=== PATIENT | male | born 1990 | race Caucasian/White ===

== ENCOUNTER 2016-09-19 00:21 | Emergency (ER) | payer SELFPAY ==
[~2016-09-19] VITALS: Ht 177.8 cm; Wt 127.0 kg
[2016-09-19 00:22] VITALS: BP 190/115; PULSE 115; RESP 20; TEMP 97.6; O2SAT 96
[2016-09-19 01:27] LABS: BACTERIA, URINE MOD /hpf; BLOOD, URINE MOD (NEG); COMMENT (UR) CULTURE INDICATED; CULTURE IF INDICATED CULTURE INDICATED; GLUCOSE,URINE 1000 mg/dL (NEG); KETONE, URINE NEG (NEG); MUCUS URINE FEW /lpf (OCC); NITRITE,URINE NEG (NEG); SQUAMOUS EPITHELIAL CELL URINE 4 /hpf (0-5)
[2016-09-19 01:29] LABS: URINE COLOR RED (YELLW/STRAW)
[2016-09-19] MEDS ORDERED: NOVORP2 SQ (01:48)
[2016-09-19 02:00] VITALS: BP 170/90; PULSE 100; RESP 20; O2SAT 96
[2016-09-19] MEDS ORDERED: SODIUM CHLOR 0.9% 1000 ML INJ 1,000 ML IV ONE (02:37)
[2016-09-19] MEDS ORDERED: SODIUM CHLORIDE 0.9% FLUSH 5 ML FLUSH IVF PRN (02:45)
[2016-09-19 02:59] LABS: AUTOMATED NEUTROPHIL # 12.6 TH/MM3 (1.8-7.7); BASOPHIL # 0.1 TH/MM3 (0-0.2); BASOPHIL % 0.5 % (0.0-2.0); EOSINOPHIL # 0.3 TH/MM3 (0-0.4); EOSINOPHIL % 1.5 % (0.0-4.0); HEMATOCRIT 48.4 % (39.0-51.0); LYMPH % 22.4 % (9.0-44.0); LYMPHOCYTE # 4.1 TH/MM3 (1.0-4.8); MEAN CORPUSCULAR HEMOGLOBIN 29.4 PG (27.0-34.0); MEAN CORPUSCULAR HGB CONC 34.5 % (32.0-36.0); MONO % 7.2 % (0.0-8.0); NEUT % 68.4 % (16.0-70.0); PLATELET COUNT 223 TH/MM3 (150-450); RED BLOOD COUNT 5.69 MIL/MM3 (4.50-5.90); RED CELL DISTRIBUTION WIDTH 13.9 % (11.6-17.2); WHITE BLOOD COUNT 18.4 TH/MM3 (4.0-11.0)
[2016-09-19 03:01] LABS: HEMO FLAGS AUTO DIFF
[2016-09-19 03:15] LABS: ALT (GPT) 40 U/L (12-78); ANION GAP 9 MEQ/L (5-15); AST (GOT) 14 U/L (15-37); BICARBONATE 24.2 MEQ/L (21.0-32.0); BLOOD UREA NITROGEN 6 MG/DL (7-18); CHLORIDE 104 MEQ/L (98-107); GLOMERULAR FILTRATION RATE 112 ML/MIN (>89); POTASSIUM 3.9 MEQ/L (3.5-5.1); SODIUM (NA) 137 MEQ/L (136-145)
[2016-09-19 03:18] LABS: ALKALINE PHOSPHATASE 87 U/L (45-117); TOTAL BILIRUBIN ADULT 0.4 MG/DL (0.2-1.0)
[2016-09-19 03:35] LABS: PLATELET ESTIMATE SMEAR NORMAL (NORMAL); PLATELET MORPHOLOGY NORMAL (NORMAL); SCAN/DIFF AUTO DIFF CONFIRMED
[2016-09-19 04:00] VITALS: BP 135/88; PULSE 80; RESP 20; O2SAT 96
--- NOTE | 2016-09-19 04:18 | PD ---
HPI Chief Complaint: Complaint Time Seen by Provider: 02:35 Travel History International Travel<30 days: No Contact w/Intl Traveler<30days: No Traveled to known affect area: No History of Present Illness HPI Patient is a 26 year old male presents with superpubic pain and dysuria. Patient states he has had to have what he describes as hypospadias repair and emergent dorsal slit in the past. He states also had urinary retention after one of the procedures and had to have casey catheter in place and he thinks he needs a catheter today. Denies fevers. Denies diarrhea. PFSH Past Medical History Diabetes: Yes Patient Takes Glucophage: No Diminished Hearing: Yes (DEAF LEFT EAR) Past Surgical History Tonsillectomy: Yes (T&A) Tympanostomy Tube: Yes Social History Alcohol Use: Yes (DAILY 2-3 BEERS) Tobacco Use: Yes (1PPD) Substance Use: Yes (MARIJUANA) Allergies-Medications (Allergen,Severity, Reaction): Uncoded Allergies: GREEN TEA (Allergy, Severe, Anaphylaxis, 09/19/16) PETROLEUM (Allergy, Intermediate, HIVES, 09/19/16) Reported Meds & Prescriptions Reported Meds & Active Scripts Active Ultram (Tramadol HCl) 50 Mg Tab 50 Mg PO Q6H PRN 7 Days Ciprofloxacin (Ciprofloxacin HCl) 500 Mg Tab 500 Mg PO BID 7 Days Reported Novolin R Inj (Insulin Human Regular) 1,000 Unit/10 Ml Vial 0 SQ DIRECTED Sliding Scale As Directed. Review of Systems Except as stated in HPI: all other systems reviewed are Neg Physical Exam Narrative GENERAL: WD/WN in nad SKIN: Warm and dry. HEAD: Atraumatic. Normocephalic. EYES: Pupils equal and round. No scleral icterus. No injection or drainage. ENT: No nasal bleeding or discharge. Mucous membranes pink and moist. NECK: Trachea midline. No JVD. CARDIOVASCULAR: Regular rate and rhythm. RESPIRATORY: No accessory muscle use. Clear to auscultation. Breath sounds equal bilaterally. GASTROINTESTINAL: Abdomen soft, non-tender, nondistended. Hepatic and splenic margins not palpable. GENITOURINARY: Normal external genitalia. Mild shmegma. No rash nor lesion. MUSCULOSKELETAL: Extremities without clubbing, cyanosis, or edema. No obvious deformities. NEUROLOGICAL: Awake and alert. No obvious cranial nerve deficits. Motor grossly within normal limits. Five out of 5 muscle strength in the arms and legs. Normal speech. PSYCHIATRIC: Appropriate mood and affect; insight and judgment normal. Data Data Last Documented VS Vital Signs Date Time Temp Pulse Resp B/P Pulse Ox O2 Delivery O2 Flow Rate FiO2 09/19/16 06:00 77 18 142/76 96 Room Air 09/19/16 00:22 97.6 Orders Urinalysis - C+S If Indicated (09/19/16 00:37) Urine Culture (09/19/16 00:55) Complete Blood Count With Diff (09/19/16 02:37) Comprehensive Metabolic Panel (09/19/16 02:37) Beta Hydroxybutyrate (Acetone) (09/19/16 02:37) Ecg Monitoring (09/19/16 02:37) Iv Access Insert/Monitor (09/19/16 02:37) Oximetry (09/19/16 02:37) NPO (09/19/16 02:37) Sodium Chlor 0.9% 1000 Ml Inj (Ns 1000 M (09/19/16 02:37) Sodium Chloride 0.9% Flush (Ns Flush) (09/19/16 02:45) Ed Poc Ultrasound (09/19/16 ) Urinary Catheter Management ULYSSES.Q8H (09/19/16 02:59) Morphine Inj (Morphine Inj) (09/19/16 04:30) Ct Abd/Pel W/O Iv Contrast (09/19/16 ) Ciprofloxacin (Cipro) (09/19/16 05:45) Labs Laboratory Tests Test 09/19/16 09/19/16 00:55 02:50 Urine Color RED Urine Turbidity TURBID Urine pH 6.0 Urine Specific Wilson 1.039 Urine Protein 300 mg/dL Urine Glucose (UA) 1000 mg/dL Urine Ketones NEG mg/dL Urine Occult Blood MOD Urine Nitrite NEG Urine Bilirubin NEG Urine Urobilinogen LESS THAN 2.0 MG/DL Urine Leukocyte Esterase NEG Urine RBC /hpf Urine WBC /hpf Urine Squamous Epithelial 4 /hpf Cells Urine Bacteria MOD /hpf Urine Mucus FEW /lpf Urine Yeast (Budding) RARE Microscopic Urinalysis Comment CULTURE INDICATED White Blood Count 18.4 TH/MM3 Red Blood Count 5.69 MIL/MM3 Hemoglobin 16.7 GM/DL Hematocrit 48.4 % Mean Corpuscular Volume 85.0 FL Mean Corpuscular Hemoglobin 29.4 PG Mean Corpuscular Hemoglobin 34.5 % Concent Red Cell Distribution Width 13.9 % Platelet Count 223 TH/MM3 Mean Platelet Volume 9.1 FL Neutrophils (%) (Auto) 68.4 % Lymphocytes (%) (Auto) 22.4 % Monocytes (%) (Auto) 7.2 % Eosinophils (%) (Auto) 1.5 % Basophils (%) (Auto) 0.5 % Neutrophils # (Auto) 12.6 TH/MM3 Lymphocytes # (Auto) 4.1 TH/MM3 Monocytes # (Auto) 1.3 TH/MM3 Eosinophils # (Auto) 0.3 TH/MM3 Basophils # (Auto) 0.1 TH/MM3 CBC Comment AUTO DIFF Differential Comment AUTO DIFF CONFIRMED Platelet Estimate NORMAL Platelet Morphology Comment NORMAL Red Cell Morphology Comment NORMAL Sodium Level 137 MEQ/L Potassium Level 3.9 MEQ/L Chloride Level 104 MEQ/L Carbon Dioxide Level 24.2 MEQ/L Anion Gap 9 MEQ/L Blood Urea Nitrogen 6 MG/DL Creatinine 0.82 MG/DL Estimat Glomerular Filtration 112 ML/MIN Rate Random Glucose 254 MG/DL Calcium Level 8.8 MG/DL Total Bilirubin 0.4 MG/DL Aspartate Amino Transf 14 U/L (AST/SGOT) Alanine Aminotransferase 40 U/L (ALT/SGPT) Alkaline Phosphatase 87 U/L Total Protein 7.3 GM/DL Albumin 3.4 GM/DL B-Hydroxybutyrate 0.10 MMOL/L MDM Medical Decision Making Medical Screen Exam Complete: Yes Emergency Medical Condition: Yes Differential Diagnosis Urinary retention, UTI, Kidney stone, Hematuria, JAMI. Narrative Course Patient roomed in ED, casey cathter placed yielding 500cc of grossly bloody urine. Labs are reassuring however patient still has pain after casey. CT exam indicated: Last 24 hours Impressions Abdomen/Pelvis CT 09/19/16 0000 Signed Impressions: Service Date/Time: Monday, September 19, 2016 05:24 - CONCLUSION: 1. No evidence of renal stone. Marked bladder wall thickening characteristic of cystitis. Arturo Alvarado MD Feeling better, patient would like to go home. DIscussed need for follow up with urology, will discharge with casey in place and discussed need for possible cystoscopy in the future. Discussed follow up with one week or return to ED for trial without casey. Discussed follow up with PCP. Diagnosis Primary Impression: UTI (urinary tract infection) Qualified Code: N30.01 - Acute cystitis with hematuria Referrals: Russell Triana MD Med/Other Pt SpecificInfo: Prescription(s) given Scripts Tramadol (Ultram)50 Mg Tab50 Mg PO Q6H PRN (PAIN) 7 Days Ref 0 Prov:Bernardo Hurley MD 09/19/16 Ciprofloxacin 500 Mg [id number] Mg PO BID 7 Days Ref 0 Prov:Bernardo Hurley MD 09/19/16 Disposition: 01 DISCHARGE HOME Condition: Stable Bernardo Hurley MD Sep 19, 2016 04:17
[2016-09-19] MEDS ORDERED: MORPHINE SULFATE 8 MG/ML INJ IV PUSH ONE (04:30)
--- NOTE | 2016-09-19 05:40 | RADRPT ---
EXAM DATE/TIME: 09/19/2016 05:24 [facility] COMPARISON: POC ULTRASOUND ED, September 19, 2016, 2:51. INDICATIONS : Hematuria. ORAL CONTRAST: No oral contrast ingested. RADIATION DOSE: 28.31 CTDIvol (mGy) MEDICAL HISTORY : Diabetes mellitus type 2. SURGICAL HISTORY : None. ENCOUNTER: Initial ACUITY: 1 day PAIN SCALE: 1/10 LOCATION: pelvis TECHNIQUE: Volumetric scanning of the abdomen and pelvis was performed. Using automated exposure control and ad justment of the mA and/or kV according to patient size, radiation dose was kept as low as reasonably achievable to obtain optimal diagnostic quality images. FINDINGS: BlankExamination of the lung bases demonstrates no abnormality. No pleural fluid is identified. No pu lmonary nodules are present. The liver and spleen are normal in size and no focal defects are identif ied. The gallbladder and pancreas are unremarkable. No intrahepatic or extrahepatic ductal dilatation is seen. The adrenal glands and kidneys appear normal bilaterally. No hydronephrosis or mass lesions are identified. There is a moderate amount of fecal material throughout the colon. Examination of the pelvis demonstrates no evidence of free fluid or pelvic mass. No abnormally enlarg ed inguinal or retroperitoneal lymph nodes are present. The bladder demonstrates a Wood catheter wit h marked thickening of the bladder wall and perivesical inflammatory changes which may reflect cystit is either acute or chronic. CONCLUSION: 1. No evidence of renal stone. Marked bladder wall thickening characteristic of cystitis. Arturo Alvarado MD on September 19, 2016 at 5:33 Board Certified Radiologist. This report was verified electronically.
[2016-09-19] MEDS ORDERED: CIPROFLOXACIN 500 MG TAB PO ONE (05:45)
[2016-09-19] MEDS ORDERED: ULTR50TA5 PO (05:46)
[2016-09-19] MEDS ORDERED: CIPR500T2 PO (05:46)
[2016-09-19 06:00] VITALS: BP 142/76; PULSE 77; RESP 18; O2SAT 96
== END 2016-09-19 07:21 | disposition home or self-care (01) ==
LOC: NEPC 00:21
DX: N39.0 Urinary tract infection, site not specified (principal); R31.9 Hematuria, unspecified; E11.9 Type 2 diabetes mellitus without complications; F17.210 Nicotine dependence, cigarettes, uncomplicated
CPT/HCPCS: 74176; 80053; 81001; 82010; 85025; 87086; 96361; 96374; 99284; J2270; J7030